=== PATIENT | male | born 1980 ===

== ENCOUNTER 2017-12-31 00:17 | Emergency (ER) | payer BC ==
[2017-12-31 00:50] VITALS: BP 120/75; PULSE 88; RESP 16; TEMP 99; O2SAT 99
[2017-12-31] MEDS ORDERED: Tdap Vaccine 0.5 ml Vial (10-64 yrs) IM ONE (01:09)
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
--- NOTE | 2017-12-31 03:08 | RAD ---
EXAM: XR Right Tibia and Fibula, 2 Views CLINICAL HISTORY: 37 years old, male; Injury or trauma; Fall; Initial encounter; Blunt trauma; Lower leg; Right; Additional info: S/P fall TECHNIQUE: Frontal and lateral views of the right tibia and fibula. COMPARISON: No relevant prior studies available. FINDINGS: Bones/joints: There is acute comminuted oblique nondisplaced proximal fibular fracture. No dislocation. Soft tissues: Unremarkable. No radiopaque foreign body. IMPRESSION: There is acute comminuted oblique nondisplaced proximal fibular fracture.
== END 2017-12-31 04:02 | disposition home or self-care (01) ==
LOC: H.ER 00:17
DX: S82.401A Unspecified fracture of shaft of right fibula, initial encounter for closed fracture (principal); W00.0XXA Fall on same level due to ice and snow, initial encounter; F17.210 Nicotine dependence, cigarettes, uncomplicated
CPT/HCPCS: 29530; 73590; 90471; 90715; 99285; L1830

== ENCOUNTER 2018-02-01 19:03 | Emergency (ER) | payer BC ==
[2018-02-01 19:18] VITALS: BP 115/77; PULSE 115; RESP 18; TEMP 102.6; O2SAT 98
--- NOTE | 2018-02-01 20:34 | ED PDOC ---
HPI: Influenza Time Seen by Provider: 02/01/18 20:08 Chief Complaint: Flu-like Symptoms Chief Complaint (Provider): Flu-like Symptoms History Per: Patient Sick Contacts (Context): None Additional complaint(s):: Bishnu is a 38 y/o male who presents to the ED complaining of fever and sore throat that started this morning. Patient has taken Dayquil with minimal relief. He denies chest pain or cough. PMD: None Provided Past Medical History Reviewed: Historical Data, Nursing Documentation, Vital Signs Vital Signs: Last Vital Signs Temp 102.6 F H 02/01/18 19:15 Pulse 115 H 02/01/18 19:15 Resp 18 02/01/18 19:15 BP 115/77 02/01/18 19:15 Pulse Ox 98 02/01/18 19:15 - Family History Family History: States: Unknown Family Hx - Home Medications Home Medications: Ambulatory Orders Medication Instructions Recorded Acetaminophen [Acetaminophen 8 650 mg PO Q8 #20 tablet.er 12/31/17 Hour] Ibuprofen [Motrin Tab] 800 mg PO Q8 #20 tab 12/31/17 Amoxicillin/Clavulanate [Augmentin 1 tab PO BID #20 tab 02/01/18 875 MG-125 MG] Lidocaine 2% Viscous 10 ml MM QID #100 ml 02/01/18 Oseltamivir Phosphate [Tamiflu] 75 mg PO BID #10 capsule 02/01/18 - Allergies Allergies/Adverse Reactions: Allergies Allergy/AdvReac Type Severity Reaction Status Date / Time apple Allergy RASH Verified 12/31/17 00:44 soy Allergy ANAPHYLAXIS Verified 12/31/17 00:44 Review of Systems ROS Statement: Except As Marked, All Systems Reviewed And Found Negative Constitutional: Positive for: Fever ENT: Positive for: Throat Pain Cardiovascular: Negative for: Chest Pain Respiratory: Negative for: Cough Physical Exam - Reviewed Nursing Documentation Reviewed: Yes Vital Signs Reviewed: Yes - Physical Exam Appears: Positive for: Well, Non-toxic, No Acute Distress Skin: Positive for: Normal Color, Warm (warm to touch), Dry ENT: Positive for: Tonsillar Exudate, Tonsillar Swelling (x 3), Other (Airways open and secretious; uvula edematous) Respiratory: Positive for: Normal Breath Sounds Lymphatic: Positive for: Adenopathy (cervical) Neurologic/Psych: Positive for: Alert, Oriented Medical Decision Making Medical Decision Making: Time: 20:08 Initial Impression: Flu Initial Plan: --Lidocaine 2% Viscous 15mg PO Scribe Attestation: Documented by Eleazar Hodgson acting as a scribe for Naun Mccullough PA-C MD Scribe Attestation: All medical record entries made by the Scribe were at my direction and personally dictated by me. I have reviewed the chart and agree that the record accurately reflects my personal performance of the history, physical exam, medical decision making, and the department course for this patient. I have also personally directed, reviewed, and agree with the discharge instructions and disposition. - ECG O2 Sat by Pulse Oximetry: 98 (RA) Pulse Ox Interpretation: Normal Disposition - Clinical Impression Clinical Impression: Influenza, Acute pharyngitis - Patient ED Disposition Is Patient to be Admitted: No Counseled Patient/Family Regarding: Studies Performed, Diagnosis, Need For Followup, Rx Given - Disposition Disposition: Routine/Home Disposition Time: 20:47 Condition: GOOD Prescriptions: Amoxicillin/Clavulanate [Augmentin 875 MG-125 MG] 1 tab PO BID #20 tab Lidocaine 2% Viscous 10 ml MM QID #100 ml Oseltamivir Phosphate [Tamiflu] 75 mg PO BID #10 capsule Instructions: Flu, Sore Throat in Adults, Sore Throat, Adult (DC) Forms: [employer] (Chinese)
== END 2018-02-01 21:02 | disposition home or self-care (01) ==
LOC: H.ER 19:03
DX: J11.1 Influenza due to unidentified influenza virus with other respiratory manifestations (principal)

== ENCOUNTER 2018-02-18 04:14 | Emergency (ER) | payer BC ==
[2018-02-18 04:37] VITALS: BP 118/70; PULSE 109; RESP 18; TEMP 98.2; O2SAT 98
[2018-02-18] MEDS ORDERED: Hydrogen Peroxide 3% Soln (480ml) TP ONE (05:03)
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
--- NOTE | 2018-02-18 08:44 | RAD ---
PROCEDURE: Right Hand Radiographs. HISTORY: s/p fall COMPARISON: None. FINDINGS: BONES: There is an acute transverse nondisplaced fracture in the base of the proximal phalanx of the 4th finger. JOINTS: Normal. No osteoarthritic changes. SOFT TISSUES: There is moderate soft tissue swelling in the proximal 4th finger. OTHER FINDINGS: None. IMPRESSION: Acute transverse nondisplaced fracture in the base of the proximal phalanx of the 4th finger with surrounding soft tissue swelling.
== END 2018-02-18 06:44 | disposition home or self-care (01) ==
LOC: H.ER 04:14
DX: S62.644A Nondisplaced fracture of proximal phalanx of right ring finger, initial encounter for closed fracture (principal); V18.4XXA Pedal cycle driver injured in noncollision transport accident in traffic accident, initial encounter; Y93.55 Activity, bike riding; Z87.891 Personal history of nicotine dependence; S60.519A Abrasion of unspecified hand, initial encounter; F10.129 Alcohol abuse with intoxication, unspecified

== ENCOUNTER 2018-06-17 22:50 | Emergency (ER) | payer BC ==
[2018-06-17 22:55] VITALS: BMI 25.0
[2018-06-17 22:57] VITALS: BP 109/73; PULSE 99; RESP 16; TEMP 98.5; O2SAT 97
--- NOTE | 2018-06-17 23:04 | ED PDOC ---
HPI: CCC, URI, Sore Throat Time Seen by Provider: 06/17/18 22:59 Chief Complaint (Nursing): ENT Problem Chief Complaint (Provider): right ear pain History Per: Patient Additional Complaint(s): 38-year-old male presents with throbbing pain to right urine started yesterday. He denies any active bleeding or drainage. He does complain of decreased hearing. PMD: none Past Medical History Reviewed: Historical Data, Nursing Documentation, Vital Signs Vital Signs: Last Vital Signs Temp 98.5 F 06/17/18 22:55 Pulse 99 H 06/17/18 22:55 Resp 16 06/17/18 22:55 BP 109/73 06/17/18 22:55 Pulse Ox 97 06/17/18 22:55 - Medical History PMH: Depression - Surgical History Surgical History: No Surg Hx - Family History Family History: States: No Known Family Hx - Social History Current smoker - smoking cessation education provided: No Ex-Smoker (has not smoked in the last 12 months): Yes (quit 2 months ago) Alcohol: None Drugs: Denies - Home Medications Home Medications: Ambulatory Orders Medication Instructions Recorded Acetaminophen [Acetaminophen 8 650 mg PO Q8 #20 tablet.er 12/31/17 Hour] Ibuprofen [Motrin Tab] 800 mg PO Q8 #20 tab 12/31/17 Amoxicillin/Clavulanate [Augmentin 1 tab PO BID #20 tab 02/01/18 875 MG-125 MG] Lidocaine 2% Viscous 10 ml MM QID #100 ml 02/01/18 Oseltamivir Phosphate [Tamiflu] 75 mg PO BID #10 capsule 02/01/18 Ibuprofen [Motrin Tab] 800 mg PO Q8 #24 tab 02/18/18 Amoxicillin/Clavulanate [Augmentin 1 tab PO BID #14 tab 06/17/18 875 MG-125 MG] Ibuprofen [Motrin] 600 mg PO Q6 PRN #15 tab 06/17/18 Neomycin/Polymyxin/Hydrocort 4 drop TOP BID #1 bottle 06/17/18 [Cortisporin Otic Soln] - Allergies Allergies/Adverse Reactions: Allergies Allergy/AdvReac Type Severity Reaction Status Date / Time apple Allergy RASH Verified 06/17/18 22:55 soy Allergy ANAPHYLAXIS Verified 06/17/18 22:55 Review of Systems ROS Statement: Except As Marked, All Systems Reviewed And Found Negative Constitutional: Negative for: Fever, Chills ENT: Positive for: Ear Pain (right). Negative for: Nose Congestion, Throat Pain , Throat Swelling Cardiovascular: Negative for: Chest Pain Respiratory: Negative for: Cough Gastrointestinal: Negative for: Nausea, Vomiting Neurological: Negative for: Headache, Dizziness Physical Exam - Reviewed Nursing Documentation Reviewed: Yes Vital Signs Reviewed: Yes - Physical Exam Appears: Positive for: Well Head Exam: Positive for: ATRAUMATIC Skin: Positive for: Normal Color. Negative for: Rash Eye Exam: Positive for: Normal appearance ENT: Positive for: Other (right ear: Bulging and erythematous tympanic membrane with obscured landmarks. Mild canal erythema with no edema or exudate. No mastoid tenderness, left ear within normal limits). Negative for: Nasal Congestion, Pharyngeal Erythema Cardiovascular/Chest: Positive for: Regular Rate, Rhythm Respiratory: Positive for: Normal Breath Sounds. Negative for: Wheezing, Respiratory Distress Extremity: Positive for: Normal ROM Neurologic/Psych: Positive for: Alert, Oriented - ECG O2 Sat by Pulse Oximetry: 97 Pulse Ox Interpretation: Normal Medical Decision Making Medical Decision Making: Impression: right otitis media Plan: PO motrin Rx augmentin, cortisporin otic and motrin given. Advised clinic follow up in 2-3 days. Disposition - Clinical Impression Clinical Impression: Otitis media - Patient ED Disposition Is Patient to be Admitted: No Counseled Patient/Family Regarding: Diagnosis, Need For Followup, Rx Given - Disposition Referrals: [facility] [Outside] Disposition: Routine/Home Disposition Time: 23:03 Condition: STABLE Additional Instructions: Take prescription meds as directed. Follow-up with clinic or primary doctor in 2 -3 days. Prescriptions: Amoxicillin/Clavulanate [Augmentin 875 MG-125 MG] 1 tab PO BID #14 tab Ibuprofen [Motrin] 600 mg PO Q6 PRN #15 tab PRN Reason: Pain, Moderate (4-7) Neomycin/Polymyxin/Hydrocort [Cortisporin Otic Soln] 4 drop TOP BID #1 bottle Instructions: Ear Infections (Otitis Media)
== END 2018-06-17 23:27 | disposition home or self-care (01) ==
LOC: H.ER 22:50
DX: H66.91 Otitis media, unspecified, right ear (principal); Z87.891 Personal history of nicotine dependence; Z86.59 Personal history of other mental and behavioral disorders